=== PATIENT | male | born 1960 | race Caucasian/White ===

== ENCOUNTER 2016-05-30 06:25 | Emergency (ER) ==
--- NOTE | 2016-05-30 07:14 | PROVIDER DOCUMENTATION ---
HPI-General Adult - General Chief Complaint: Flu Symptoms Stated Complaint: N/V/D Time Seen by Provider: 05/30/16 07:01 Source: patient Allergies/Adverse Reactions: Patient Allergies Allergy/AdvReac Type Severity Reaction Status Date / Time No Known Allergies Allergy Verified 05/30/16 06:41 Home Medications: Home Medication List Medication Instructions Recorded Confirmed Last Taken Type Azithromycin [Zithromax Z-Rebel] 250 mg PO DIRECTED #1 pkg 05/30/16 Unknown Rx Guaifenesin/Codeine Phosphate 10 ml PO Q4HR PRN #120 liquid 05/30/16 Unknown Rx [Cheratussin AC Syrup] - History of Present Illness -Gen Adult Nature of Presenting Problems: Sore throat and cough and congestion for several days. Location of Pain/Injury: reports: mouth (throat) Pain Radiation: reports: no radiation Quality of Pain: reports: burning Severity: reports: moderate Onset/Duration: reports: 2 days ago Timing: reports: still present Context/Activities at Onset: reports: moderate activity Modifying Factors: improves with: nothing. worse with: coughing Associated Symptoms: reports: back/neck pain, cough, sinus congestion/drainage, shortness of breath. denies: fever/chills, vomiting Similar Symptoms Previously?: Yes Recently seen or treated by another doctor?: No Review of Systems - Adult - REVIEW OF SYSTEMS - ADULT Constitutional: reports: no symptoms reported Eyes: reports: no symptoms reported Ears, Nose, Mouth & Throat: reports: throat pain, throat swelling Cardiovascular: reports: no symptoms reported Respiratory: reports: cough, shortness of breath, wheezing Gastrointestinal: reports: no symptoms reported Genitourinary: reports: no symptoms reported Musculoskeletal: reports: no symptoms reported Integumentary: reports: no symptoms reported Neurological: reports: no symptoms reported Psychiatric: reports: no symptoms reported Endocrine: reports: no symptoms reported Hematologic/Lymphatic: reports: no symptoms reported Allergic/Immunologic: reports: no symptoms reported All Other Systems: Reviewed and Negative Past History - Adult - PAST MEDICAL HISTORY-ADULT Review of Records: reports: Nursing Assessment Review Major Childhood Illnesses: reports: denies history Cardiovascular: reports: denies history Respiratory: reports: COPD Gastrointestinal: reports: denies history Obstetrical/Gynecological: reports: denies history Genitourinary: reports: denies history Musculoskeletal: reports: denies history Neurological: reports: denies history Endocrine/Immune: reports: denies history Other Conditions: reports: denies history - PRIOR SURGERIES/PROCEDURES Surgical/Procedure History: reports: orthopedic (extremity) (R wrist ), other ( arthroscopy ) - IMMUNIZATION STATUS Childhood Immunizations: See Nurse Assessment Flu Vaccine: See Nurse Assessment - FAMILY HISTORY Family History: reviewed, not pertinent - SOCIAL HISTORY Smoking: cigarettes Physical Exam-General - CONSTITUTIONAL General Appearance: alert, mild distress - HEAD, EARS, NOSE, MOUTH & THROAT HENMT: normocephalic/atraumatic, pharyngeal erythema - NECK Neck: supple - RESPIRATORY Respiratory: rales, rhonchi, wheezing - CARDIOVASCULAR Cardiovascular: regular rate, rhythm - GASTROINTESTINAL (ABDOMEN) Abdominal Exam: non tender, soft - MUSCULOSKELETAL Back Exam: normal inspection Extremity: no pedal edema - SKIN Integumentary: normal color - NEUROLOGIC Neurologic: grossly normal - PSYCHIATRIC Psych/Mental Status: oriented x 3 Progress - PLAN OF CARE/RESULTS Progress/Plan/Lab Results: Laboratory Tests 05/30/16 06:41 Influenza A (Rapid) NEGATIVE Influenza B (Rapid) NEGATIVE Chest xray ok read by me. Departure - Departure Time of Disposition Order: 07:38 DIAGNOSIS: Acute bronchitis Disposition: HOME 01 Certified Medical Emergency: Urgent Condition: Good Prescriptions: Guaifenesin/Codeine Phosphate [Cheratussin AC Syrup] 10 ml PO Q4HR PRN #120 liquid PRN Reason: Cough Azithromycin [Zithromax Z-Rebel] 250 mg PO DIRECTED #1 pkg
[2016-05-30] MEDS ORDERED: ROCEPHIN IM ONE (07:40)
[2016-05-30] MEDS ORDERED: XYLOCAINE-MPF 1% INJ ONE (07:40)
[2016-05-30] MEDS ORDERED: DECADRON IM ONE (07:40)
[2016-05-30 08:01] VITALS: BP 140/79
--- NOTE | 2016-05-30 09:19 | Diag Imaging Result Document ---
PROCEDURE NAME: CHEST-2 VIEWS - 05/30/2016 CHEST 2 VIEWS: Compared with 06/15/2015. FINDINGS: Heart size is normal. There are possibly mild emphysematous changes. The lungs appear clear of acute changes. There is no pleural effusion or pneumothorax identified. There are old compression deformities of 2 mid and lower thoracic vertebral bodies, similar to the previous exam. IMPRESSION: Possible mild emphysematous changes. No other evidence of acute disease.
== END 2016-05-30 08:14 | disposition home or self-care (01) ==
LOC: P.ED 06:25
DX: J20.9 Acute bronchitis, unspecified (principal); J02.9 Acute pharyngitis, unspecified; R05 Cough; R09.81 Nasal congestion; R22.1 Localized swelling, mass and lump, neck; R06.02 Shortness of breath; R06.2 Wheezing; J44.9 Chronic obstructive pulmonary disease, unspecified
CPT/HCPCS: 71020; 87804; 96372; J0696; J1100

== ENCOUNTER 2016-09-13 20:50 | Inpatient (IN) ==
[2016-09-13] MEDS ORDERED: ASPIRIN PO STA (20:59)
--- NOTE | 2016-09-13 21:26 | Diag Imaging Result Doc PS360 ---
EXAM: CHEST-2 VIEWS HISTORY: CP TECHNIQUE: PA and lateral chest COMMENT: There has been no significant change in the appearance of the chest since 05/30/2016. There is a compression fracture of T12 which was also present at the time the previous study. IMPRESSION: No evidence of acute disease. Osteoporosis. Electronically signed by Chivo Pineda 09/13/2016 9:24 PM
[2016-09-13 21:55] LABS: MANUAL DIFF NEEDED? NO
[2016-09-13 22:01] LABS: BASO% 0.5 % (0.0-0.8); EOS# 0.45 X1000 (0.0-0.7); EOS% 5.3 % (0.0-10.0); HEMATOCRIT 40.2 % (42.0-52.0); HEMOGLOBIN 13.3 g/dL (14.0-18.0); LYMPH% 33.1 % (20.5-51.1); MCH 29.8 PG (27-31); MCHC 33.1 g/dL (33-37); MCV 89.9 FL (81-99); MONO% 8.3 % (1.7-9.3); MPV 11.1 FL (7.4-10.4); NEUT% 52.8 % (42.2-75.2); PLT 257 X1000 (130-400); RBC 4.47 XMIL (4.7-6.1)
[2016-09-13 22:14] LABS: INR 0.97; PROTIME 10.2 Seconds (9.2-11.7); PTT 26.1 Seconds (22.0-36.0)
[2016-09-13 22:19] LABS: AGAP 12; ALBUMIN 3.9 g/dL (3.5-5.0); ALKALINE PHOSPHATASE 78 U/L (32-122); BUN 11 mg/dL (8-22); CALCIUM 8.6 mg/dL (8.8-10.2); CHLORIDE 106 mmol/L (98-107); CK PROFILE 127 U/L (24-204); COSMO 279; GOT 26 U/L (10-34); GPT 34 U/L (10-44); POTASSIUM 3.9 mmol/L (3.5-5.1); SODIUM 140 mmol/L (136-145); TCO2 22 mmol/L (25-35); TOTAL BILIRUBIN 0.18 mg/dL (0.20-1.00); TOTAL PROTEIN 6.7 g/dL (6.3-8.3)
[2016-09-13] MEDS ORDERED: ATIVAN PO ONE (23:27)
[2016-09-13] MEDS ORDERED: NICODERM PATCH TD ONE (23:27)
--- NOTE | 2016-09-13 23:39 | PROVIDER DOCUMENTATION ---
This chart was entered by Leona Arevalo Scribe, acting as scribe for Greg Ramirez MD. HPI-Chest Pain - General Chief Complaint: Chest Pain Stated Complaint: CHEST PAIN Time Seen by Provider: 09/13/16 22:07 Source: patient Allergies/Adverse Reactions: Patient Allergies Allergy/AdvReac Type Severity Reaction Status Date / Time No Known Allergies Allergy Verified 09/13/16 20:59 Home Medications: Home Medication List Medication Instructions Recorded Confirmed Last Taken Type NK [No Home Medications] 09/13/16 09/13/16 Unknown History - History of Present Illness-CP Nature of Presenting Problem: pt is a 56 year old male who came to the ED with a cc of chest pain starting at 15:00 while at work. Pt reports the pain went down his left arm after a few hours, that is when he decided to come to the ED. Pt reports that he had blurry vision, diaphoretic, and a headache. Pt reports he smoke a pack and a half a day. PT reports his ankles swell sometimes. Location: reports: central Chest Pain Radiation: reports: arms Quality of Pain: reports: sharp Severity in ED: mild Onset/Duration: 4-6 hours ago Timing: resolved prior to arrival Context/Activities at Onset: reports: none Associated Symptoms: reports: headache, shortness of breath. denies: nausea, vomiting, weakness Nitro Today/Relief: no nitro taken today Aspirin Treatment Today: provided at home Prior Chest Pain/Cardiac Workup: reports: no prior chest pain Similar Symptoms Previously?: No Recently Seen Here or By Another Healthcare Provider: No Review of Systems - Adult - REVIEW OF SYSTEMS - ADULT Constitutional: denies: chills, fever Eyes: reports: blurred vision. denies: decreased vision, double vision Ears, Nose, Mouth & Throat: reports: no symptoms reported Cardiovascular: reports: chest pain. denies: irregular heart rate, orthopnea, syncope Respiratory: reports: shortness of breath. denies: cough, pleurisy, wheezing Gastrointestinal: denies: nausea, vomiting Genitourinary: reports: no symptoms reported Musculoskeletal: reports: no symptoms reported Integumentary: reports: no symptoms reported Neurological: reports: headache/migraines. denies: numbness, seizure Psychiatric: reports: no symptoms reported Endocrine: reports: no symptoms reported Hematologic/Lymphatic: reports: no symptoms reported Allergic/Immunologic: reports: no symptoms reported All Other Systems: Reviewed and Negative Past History - Adult - PAST MEDICAL HISTORY-ADULT Review of Records: reports: Nursing Assessment Review Major Childhood Illnesses: reports: denies history Cardiovascular: reports: denies history Respiratory: reports: COPD Gastrointestinal: reports: GERD Obstetrical/Gynecological: reports: denies history Genitourinary: reports: denies history Musculoskeletal: reports: denies history Neurological: reports: denies history Endocrine/Immune: reports: denies history Other Conditions: reports: denies history - PRIOR SURGERIES/PROCEDURES Surgical/Procedure History: reports: orthopedic (extremity) (R wrist ), other ( arthroscopy ) - IMMUNIZATION STATUS Childhood Immunizations: See Nurse Assessment Flu Vaccine: See Nurse Assessment - FAMILY HISTORY Family History: reviewed, not pertinent Physical Exam-General - PHYSICAL EXAM-ADULT Initial Vital Signs Reviewed: Yes - CONSTITUTIONAL General Appearance: alert, no apparent distress - EYES Eyes: PERRL/EOMI, pink conjunctivae - HEAD, EARS, NOSE, MOUTH & THROAT HENMT: normocephalic/atraumatic, moist mucous membranes, normal ENT inspection - NECK Neck: supple, normal inspection - RESPIRATORY Respiratory: chest non-tender, lungs clear, normal breath sounds - CARDIOVASCULAR Cardiovascular: normal peripheral pulses, regular rate, rhythm, no edema - GASTROINTESTINAL (ABDOMEN) Abdominal Exam: normal bowel sounds, non tender, soft - LYMPHATIC Lymphatic: no adenopathy - MUSCULOSKELETAL Back Exam: normal inspection, no CVA tenderness, no vertebral tenderness Extremity: normal range of motion, non-tender - SKIN Integumentary: normal color, normal turgor, warm/dry - NEUROLOGIC Neurologic: grossly normal, no motor/sensory deficits - PSYCHIATRIC Psych/Mental Status: normal mood/affect, normal thought content, normal thought process, oriented x 3 Progress - PLAN OF CARE/RESULTS Progress/Plan/Lab Results: Vital Signs - 8 hr 09/13/16 20:55 Temperature 97.8 F Pulse Rate 86 Respiratory Rate 12 Blood Pressure 154/80 O2 Sat by Pulse Oximetry 100 Laboratory Results - last 24 hr 09/13/16 09/13/16 09/13/16 21:05 21:05 21:05 WBC 8.46 RBC 4.47 L Hgb 13.3 L Hct 40.2 L MCV 89.9 MCH 29.8 MCHC 33.1 RDW Std Deviation 13.5 Plt Count 257 MPV 11.1 H Immature Gran % (Auto) 0.0 Neut % (Auto) 52.8 Lymph % (Auto) 33.1 Pershing % (Auto) 8.3 Eos % (Auto) 5.3 Baso % (Auto) 0.5 Immature Gran # (Auto) 0.00 Neut # (Auto) 4.47 Lymph # (Auto) 2.80 Pershing # (Auto) 0.70 H Eos # (Auto) 0.45 Baso # (Auto) 0.04 PT INR PTT (Actin FS) D-Dimer 0.25 Sodium 140 Potassium 3.9 Chloride 106 Carbon Dioxide 22 L Anion Gap 12 BUN 11 Creatinine 0.9 Estimated GFR/1.73 m2 > 60 BUN/Creatinine Ratio 12 Glucose 98 Calculated Osmolality 279 Calcium 8.6 L Magnesium 2.0 Total Bilirubin 0.18 L AST 26 ALT 34 Alkaline Phosphatase 78 Creatine Kinase 127 Troponin T Rix-[id number]-Fyzyjlzbesx Pept Total Protein 6.7 Albumin 3.9 Globulin 2.8 Albumin/Globulin Ratio 1.4 09/13/16 09/13/16 09/13/16 21:05 21:05 21:05 WBC RBC Hgb Hct MCV MCH MCHC RDW Std Deviation Plt Count MPV Immature Gran % (Auto) Neut % (Auto) Lymph % (Auto) Pershing % (Auto) Eos % (Auto) Baso % (Auto) Immature Gran # (Auto) Neut # (Auto) Lymph # (Auto) Pershing # (Auto) Eos # (Auto) Baso # (Auto) PT 10.2 INR 0.97 PTT (Actin FS) 26.1 D-Dimer Sodium Potassium Chloride Carbon Dioxide Anion Gap BUN Creatinine Estimated GFR/1.73 m2 BUN/Creatinine Ratio Glucose Calculated Osmolality Calcium Magnesium Total Bilirubin AST ALT Alkaline Phosphatase Creatine Kinase Troponin T < 0.010 Gka-D-Dzcftdebpto Pept 102 Total Protein Albumin Globulin Albumin/Globulin Ratio Orders Category Date Time Status Cardiac Monitoring DIRECTED Care 09/13/16 21:00 Active CHEST-2 VIEWS [RAD] Stat Exams 09/13/16 21:00 Completed CBC WITH ELECTRONIC DIFF [HEME] Stat Lab 09/13/16 21:05 Completed CK PROFILE [SP CHEM] Stat Lab 09/13/16 21:05 Completed COMPREHENSIVE METABOLIC PANEL [CHEM] Stat Lab 09/13/16 21:05 Completed D-DIMER [CHEM] Stat Lab 09/13/16 21:05 Completed MAGNESIUM [CHEM] Stat Lab 09/13/16 21:05 Completed PRO B-NATRIURETIC PEPTIDE Stat Lab 09/13/16 21:05 Completed PROTIME WITH INR [COAG] Stat Lab 09/13/16 21:05 Completed PTT [COAG] Stat Lab 09/13/16 21:05 Completed TROPONIN T Stat Lab 09/13/16 21:05 Completed TROPONIN T Stat Lab 09/13/16 23:10 Received Aspirin Med 09/13/16 20:59 Discontinued 325 mg PO STAT STA Lorazepam [Ativan] Med 09/13/16 23:27 Discontinued 1 mg PO NOW ONE Nicotine Patch [Nicoderm Patch] Med 09/13/16 23:27 Discontinued 21 mg TD NOW ONE EKG [EKG] Stat Ther 09/13/16 21:00 Ordered EKG [EKG] Stat Ther 09/13/16 23:15 Ordered Result Diagrams: 09/13/16 21:05 09/13/16 21:05 - EKG 1 Time of EKG reading by physician:: 20:57 EKG Read and Signed by:: Greg Ramirez EKG Interpretation (*Must complete 3 of following elements*): Normal Rate: 83 Rhythm: NSR - XRAY 1 XRAY Study: Chest (no evidence of acute disease. osteoporosis) - CONSULTS/PCP/HOSPITALIST Notification #1 *Consult/PCP/Hospitalist*: Dr. Schafer Time Discussed: 23:16 Consult Disposition: Admit #2 Consult: Dr Russ Time Discussed: 11:00 Reason/Comments: Wants patient admitted Departure - Departure Date of Disposition Decision: 09/13/16 Time of Disposition Decision: 23:36 DIAGNOSIS: Angina effort Disposition: ADMITTED INPATIENT 09 Certified Medical Emergency: Emergent Condition: Good Referrals and Follow-Ups: None,PCP [Primary Care Provider] - - Critical Care Note This patient required my direct & personal management of CC.: No This chart was documented by the indicated scribe, (Leona Arevalo Scribe) and accurately reflects the services I performed and decisions made by me, Greg Ramirez MD, as attested by the provider's signature.
[2016-09-13] MEDS ORDERED: G.I. COCKTAIL PO ONE (23:56)
[2016-09-14] MEDS ORDERED: LIPITOR PO ONE (00:02)
[2016-09-14] MEDS ORDERED: DUONEB (A & A) INH PRN (01:06)
[2016-09-14] MEDS ORDERED: LOVENOX SUBQ ONE (01:06)
[2016-09-14] MEDS ORDERED: TYLENOL PO PRN (01:06)
[2016-09-14] MEDS ORDERED: MORPHINE IV PRN (01:06)
[2016-09-14] MEDS ORDERED: ZOFRAN IV PRN (01:06)
--- NOTE | 2016-09-14 01:23 | HISTORY AND PHYSICAL ---
REASON FOR ADMISSION: Chest pain today. HISTORY OF PRESENT ILLNESS: Mr. Giuseppe Echavarria is a 56-year-old male with a past medical history of tobacco use and COPD. He says for the last 2 months he has been having exertional dyspnea, which has been getting worse, even with smaller amounts of exertion. The patient says his chest pain is relieved promptly once he stops engaging in any activity. Patient was at work today. 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 He also reports feeling sick to his stomach and dizzy. He said this pain lasted for about 4-5 hours, until he was willing to come to the ER at the behest of his co- workers. He says after taking a full dose of aspirin at work, he says his pain has resolved completely. He also admits to having some shortness of breath with this. Denies any palpitations, fever, chills, PND, orthopnea prior to this episode. He has a longstanding history of occasionally productive cough (of whitish sputum). He denies any GI or complaints. No neurological complaints. No musculoskeletal complaints of note. No rash. He denies any polyuria or polydipsia. No genitourinary complaints. REVIEW OF SYSTEMS: Twelve system review is negative. Positive findings per HPI. The patient denies any weight loss or night sweats. ALLERGIES: No known allergies. MEDICATIONS: None. SURGERIES: Had right wrist surgery regarding a laceration. FAMILY HISTORY: He is adopted. SOCIAL HISTORY: Smokes 1 pack a day. . No alcohol or illicit drug use. Works as a driver examiner. LABORATORY WORK: EKGs both done in the ER showed normal sinus, with no ST-wave changes. White count 8000, hemoglobin and hematocrit 13 and 40, platelets 257,000. Normal differential. Chemistry is entirely normal. He has a normal troponin, normal proBNP. D-dimer is normal. PTT is normal. Chest x-ray shows no acute cardiopulmonary process. PHYSICAL EXAMINATION: GENERAL: Middle-aged man who is not in acute distress. He is A and O x3. Normal mood and affect. HEENT: Head is normocephalic, atraumatic. Eyes: VALERIANO, EOMI. Anicteric, not pale. ENT and oropharynx exam is grossly normal. NECK: Supple. No JVD or carotid bruit. No thyromegaly. CHEST: Clear to auscultation. Good air entry in both lung topete. CARDIOVASCULAR: First and second heart sounds heard. No gallops, murmurs, or rubs. Rhythm is regular. ABDOMEN: Full, soft, nontender, without organomegaly. Bowel sounds are normal. RECTAL: Deferred at this time. EXTREMITIES: Vascularly intact, i.e., good pulses distally in all extremities and symmetrical with good volume. No clubbing or peripheral cyanosis. No edema. NEUROLOGICAL: No focal deficits. SKIN: Intact. No breakdown, lesions, or erythema. MUSCULOSKELETAL: Exam is grossly normal. ASSESSMENT: 1. Chest pain syndrome. 2. Coronary artery disease. 3. Tobacco use. 4. Anemia. PLAN: At this time, the patient will be kept NPO. Scheduled for a stress test in the a.m., probably chemical-induced stress test, as the patient says his exercise tolerance has severely worsened. We will do serial cardiac enzymes, repeat EKG in the morning, echo in the morning. Lipid panel in the a.m. If abnormal, will need to be treated. Due to patient's history of chronic obstructive pulmonary disease, we will start on p.r.n. breathing treatments. I have taken the liberty of giving this patient full-dose Lovenox because his symptoms are more consistent with that of unstable angina, due to the change and duration of his chest pain. Also, start patient empirically on statin therapy. We will consult Cardiology to see him. cc: Sourav Schafer MD
[2016-09-14 03:37] LABS: HDL 39 mg/dL (35-55); LDL 80 mg/dL; TRIGLYCERIDES 31 mg/dL (39-160); VLDL 6 mg/dL
--- NOTE | 2016-09-14 05:26 | EKG Report ---
Test Performed on : 09/13/2016 11:20:40 PM Test Reason : CP Blood Pressure : / mmHG Vent. Rate : 068 BPM Atrial Rate : 068 BPM P-R Int : 152 ms QRS Dur : 080 ms QT Int : 390 ms P-R-T Axes : 012 052 024 degrees QTc Int : 414 ms Normal sinus rhythm. Normal ECG When compared with ECG of 13-SEP-2016 20:57, (Unconfirmed) No significant change was found Unconfirmed Result
[2016-09-14] MEDS: PRILOSEC PO SCH (06:17)
--- NOTE | 2016-09-14 06:52 | EKG Report ---
Test Performed on : 09/14/2016 06:04:31 AM Test Reason : chest pain Blood Pressure : / mmHG Vent. Rate : 070 BPM Atrial Rate : 070 BPM P-R Int : 146 ms QRS Dur : 082 ms QT Int : 392 ms P-R-T Axes : 054 018 044 degrees QTc Int : 423 ms Normal sinus rhythm. Normal ECG When compared with ECG of 13-SEP-2016 23:20, No significant change was found Confirmed by Gregorio IYER, Dashawn Ulrich ([id number]) on 09/15/2016 2:58:55 PM
[2016-09-14] MEDS ORDERED: LEXISCAN ONE (09:25)
--- NOTE | 2016-09-14 11:12 | CONSULTATION ---
DATE OF CONSULTATION: 09/14/2016 REASON FOR CONSULTATION: Cardiology was consulted with chest pain. HISTORY OF PRESENT ILLNESS: Mr. Echavarria is a 76-year-old gentleman with a history of COPD, tobacco abuse. He had an episode of chest discomfort which was across his the left chest wall with some radiation to the left arm. 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 There was some numbness in his hand as well. This lasted for a few hours and he said was mild. He took aspirin and was asked to come to the emergency room and he was admitted. Prior to this, he has had mild episodes of chest pain two weeks back and other occasional episodes intermittently. There is no associated diaphoresis or shortness of breath. He is smoker and has had cough. There are no palpitations. There is no hemoptysis. There is no history of fevers or chills. There is no dizziness or syncope. REVIEW OF SYSTEMS: Fourteen point review of system was done. GI System: There is no history of nausea, vomiting, diarrhea. There is no history of hematemesis or melena. Central nervous system: No focal weakness to suggest a CVA or TIA. : There is no dysuria or hematuria. RESPIRATORY SYSTEM: As above. Cardiovascular System: As above. PAST MEDICAL HISTORY: COPD; he is not on any medications. He had wrist surgery for a laceration. FAMILY HISTORY: He is adopted. SOCIAL HISTORY: He smokes a pack of cigarettes a day. He is . No history of alcohol abuse. PHYSICAL EXAMINATION: Vital Signs: Blood pressure was 122/59. Cardiovascular System: Normal jugular venous pressure. There is no thyromegaly. No carotid bruit. First and second heart sounds were heard. There is no S3, S4, or gallop. Respiratory System: Normal air entry. There is no crepitations or rhonchi. Abdomen: Soft, nontender. There was no guarding or rigidity. Bowel sounds were heard. Central nervous system: Alert, oriented. Was moving all 4 extremities. Extremities: Examination of extremities revealed no pedal edema. HEENT: Atraumatic, normocephalic. Pupils were reacting to light. IMAGING: Chest x-ray revealed osteoporosis. No acute disease. LABORATORY EXAMINATION: Revealed a WBC 8.46, hemoglobin 13.3, hematocrit 40, platelet count 256,000. D-dimer 0.25. Sodium 140, potassium 3.9, BUN 11, creatinine 0.9. The patient was ruled out for myocardial infarction by cardiac enzymes. LDL 80, HDL 39, total cholesterol 125. Electrocardiogram revealed normal sinus rhythm. There was no ST-T changes to suggest ischemia or infarction. ASSESSMENT AND PLAN: Mr. Giuseppe Echavarria is a 56-year-old gentleman with a history of smoking and chronic obstructive pulmonary disease. He is admitted with chest discomfort as described above. The patient has symptoms suggestive of angina. He has been ruled out for myocardial infarction by cardiac enzymes. 1. We will set him up to undergo Cardiolite stress test to rule out ischemia. 2. We will get an echocardiogram to assess cardiac and valvular function. 3. I have advised him to stop smoking. 4. As far as home medications are concerned, he has been started on aspirin and omeprazole. I have not made any other changes. Thank you for the consult. We will follow hospital course. cc: Martin Polanco MD
[2016-09-14] MEDS: ASPIRIN PO SCH (11:51)
[2016-09-14] MEDS: NICODERM PATCH TD SCH (13:59)
--- NOTE | 2016-09-14 14:06 | Diag Imaging Result Document ---
PROCEDURE NAME: MYOCARDIAL PERF SCAN, STR/REST - 09/14/2016 INDICATION: Chest pain. PROCEDURES PERFORMED: 1. One-day stress rest myocardial perfusion imaging. 2. Lexiscan stress. PROCEDURE IN DETAIL: Mr. Echavarria was brought in to the nuclear laboratory and had a resting study with injection of 11.9 mCi of technetium-99m sestamibi with usual imaging protocol utilized. He subsequently was brought back and had a Lexiscan stress, and at peak stress, was injected with 34.1 mCi of technetium-99m sestamibi with usual imaging protocol utilized. FINDINGS: LEXISCAN STRESS RESULTS: 1. Baseline EKG shows sinus rhythm, rate of 68 beats per minute. 2. Lexiscan stress did not demonstrate any clear evidence of ischemic related EKG changes or significant arrhythmias. PERFUSION IMAGING RESULTS: 1. No evidence of abnormal extracardiac uptake. 2. TID ratio is 0.94. 3. Perfusion imaging shows 2 separate defects. The first defect is a mixed defect located in the anterior apical and distal anterior lateral. It is fixed in the anterior apical portion with a reversible component in the more distal anterior lateral. This may be 15-shot soft tissue attenuation versus a small area of localized ischemia. The second defect is a small sized, mild intensity defect located throughout a narrow portion of the inferior wall. This is most likely suggestive of soft tissue attenuation artifact. 4. Normal ejection fraction of 69%. The end-diastolic volume is 132, end-systolic volume of 42. Normal wall motion is noted. cc: MD Sourav Brewster MD
[2016-09-14] MEDS: XANAX PO SCH ×2 (15:05→20:25)
[2016-09-15] MEDS: PRILOSEC PO SCH (06:05)
[2016-09-15 06:58] LABS: MANUAL DIFF NEEDED? NO
[2016-09-15 07:10] LABS: BASO% 0.9 % (0.0-0.8); EOS# 0.48 X1000 (0.0-0.7); EOS% 7.5 % (0.0-10.0); HEMATOCRIT 40.6 % (42.0-52.0); HEMOGLOBIN 13.6 g/dL (14.0-18.0); LYMPH# 2.16 X1000 (1.2-3.4); LYMPH% 33.5 % (20.5-51.1); MCH 29.9 PG (27-31); MCHC 33.5 g/dL (33-37); MCV 89.2 FL (81-99); MONO# 0.55 X1000 (0.11-0.59); MONO% 8.5 % (1.7-9.3); MPV 10.6 FL (7.4-10.4); NEUT% 49.6 % (42.2-75.2); PLT 242 X1000 (130-400); RBC 4.55 XMIL (4.7-6.1)
[2016-09-15 07:20] LABS: AGAP 11; BUN 10 mg/dL (8-22); CHLORIDE 105 mmol/L (98-107); COSMO 280; SODIUM 141 mmol/L (136-145); TCO2 25 mmol/L (25-35)
[2016-09-15 07:59] VITALS: BP 110/70
[2016-09-15] MEDS: XANAX PO SCH (08:50)
[2016-09-15] MEDS: ASPIRIN PO SCH (08:50)
[2016-09-15] MEDS: NICODERM PATCH TD SCH (08:50)
[2016-09-15] MEDS ORDERED: NICODERM PATCH TD SCH (09:00)
--- NOTE | 2016-09-15 09:18 | ECHO REPORT ---
ORDER DATE: 09/14/2016 INDICATION: Chest pain. Exertional dyspnea. FINDINGS: 1. Right atrium is mildly enlarged at 4.2 cm. 2. Mild tricuspid regurgitation. RV systolic pressure 34. 3. Normal RV size and systolic function. 4. Trace pulmonic insufficiency. 5. Normal left atrial size at 3.1 cm. 6. No mitral valve prolapse. Trace mitral regurgitation. 7. Normal LV size, end-diastolic dimension of 5 cm. Normal wall thicknesses with a posterior and interventricular septal wall thickness of 0.7 and 0.9 cm respectively. Normal LV systolic function with a calculated EF of 67%. Normal wall motion. 8. Aortic valve opens well. It is trileaflet. No evidence of stenosis or insufficiency. 9. Aorta appears normal in visualized segments. 10. No pericardial effusion seen. cc: MD Sourav Brewster MD
--- NOTE | 2016-09-15 20:46 | DISCHARGE SUMMARY ---
ADMISSION DATE: 09/14/2016 DISCHARGE DATE: 09/15/2016 ADMISSION DIAGNOSES: 1. Chest pain syndrome. 2. Coronary artery disease. 3. Tobacco abuse. 4. Anemia. FINAL DISCHARGE DIAGNOSES: 1. Chest pain syndrome. 2. Coronary artery disease. 3. Tobacco abuse. 4. Anemia. PROCEDURES AND FINDINGS: On 09/14/2016, Dr. Garcia performed a myocardial perfusion scan. His baseline EKG was sinus rhythm at 68. Lexiscan stress showed no clear evidence of ischemia related to EKG changes or signs of arrhythmia. Perfusion scan showed no evidence of an abnormal extracardiac uptake. TID ratio 0.94. Imaging showed 2 defects, first defect was fixed and anterior apical and distal anterolateral, and is fixed in the anteroapical portion with reversible component in the more distal anterolateral. Second defect was a small sized, mild intensity defect located throughout the narrow portion of the inferior wall. Perfusion scan estimated the EF was 69%. End diastolic volume was 132. End systolic volume estimated at 42. CONSULTATIONS: Dr. Polanco. HOSPITAL COURSE: Mr. Echavarria is a 51-year-old male with a past medical history of tobacco abuse and COPD who presented to the ED with complaints of exertional worsening dyspnea over the last 2 months that is relieved when the patient sits down. 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 He stated the pain lasted about 4-5 hours. He was admitted for observation and had a cardiology consult in which Dr. Garcia evaluated him. The patient had an echo performed by Dr. Garcia on 09/14/2016 which revealed an EF of 67%. Vital signs show temperature 97.5, afebrile, heart rate 61, respirations 20, blood pressure 110/70, O2 saturation 98% on room air. Labs stable. Troponin was 0.010. BNP was 102 on 09/13/2016. IMAGIN. On 09/13/2016, chest x-ray showed a compression fracture at T12 that had previously been there before, osteoporosis, but otherwise no acute disease. 2. On 09/14/2016, Dr. Garcia performed an echo which revealed mild tricuspid regurgitation, right atrium was moderately enlarged at 4.2 cm. He had normal right ventricular size and systolic function. No mitral valve prolapse. He had a trace of mitral regurgitation. He had normal left atrial size at 3.1 cm. Left ventricular systolic function with estimated ejection fraction of 67%. No pericardial effusion. 3. On 09/13/2016, EKG revealed normal sinus rhythm at 68 with a QTC of 414. 4. On 09/14/2016, EKG was done. The patient was experiencing some chest pain at that time. He had normal sinus rhythm at 70 with QTC of 423. DISCHARGE MEDICATIONS: 1. Xanax 0.25 mg tablet p.o. b.i.d. 2. Aspirin 325 mg tablet p.o. daily. 3. Coreg 6.25 mg tablet p.o. every 12 hours. DISCHARGE DIET: Heart Healthy. DISCHARGE ACTIVITY: As tolerated. DISPOSITION: Home. DISCHARGE INSTRUCTIONS: Follow up with Dr. Polanco in 2 weeks outpatient for left heart cath. Dictated by GEOVANNA Appiah for Jesse Weems MD cc: GEOVANNA Appiah MD MTDD
[2016-09-15] MEDS ORDERED: COREG PO SCH (21:00)
== END 2016-09-15 15:31 | disposition home or self-care (01) ==
LOC: ED 20:50 → 3N 09-14 00:57 → SUATTDRO 09-14 00:57
PROVIDERS: ATTEND Internal Medicine